=== PATIENT | female | born 1965 | race Caucasian/White ===

== ENCOUNTER 2017-04-22 18:41 | Emergency (ER) | payer OTHER ==
[~2017-04-22] VITALS: Ht 157.5 cm; Wt 72.7 kg
[2017-04-22 19:01] VITALS: BP 195/121
--- NOTE | 2017-04-22 20:42 | NUR ---
Patient ambulated to bed 07.
--- NOTE | 2017-04-22 20:50 | NUR ---
PATIENT PRESENTS TO ED WITH c/o went for htn refill --- was noted hypertensive systolic >200---was walkd over to ER denies dizziness, denies young, no n/v-- hx---htn, hypothyroid, ms, rx---losartan, levothyroxine, baclofen; DENIES N/V/D; SKIN IS PINK/WARM/DRY; AAOX4 WITH EVEN AND STEADY GAIT; LUNGS CLEAR BL; HR EVEN AND REGULAR; PT DENIES ANY FEVER, CP, SOB, OR COUGH AT THIS TIME; PATIENT STATES PAIN OF 0/10 AT THIS TIME; VSS; PATIENT POSITIONED FOR COMFORT; HOB ELEVATED; BEDRAILS UP X2; BED DOWN. ER MD MADE AWARE OF PT STATUS.
--- NOTE | 2017-04-22 21:00 | NUR ---
AAO pt being evaluated by Dr Shields
[2017-04-22] MEDS ORDERED: cloNIDine 0.1 MG TAB PO ONE (21:05)
[2017-04-22 21:42] VITALS: BP 179/113
--- NOTE | 2017-04-22 21:42 | NUR ---
Patient discharged with v/s stable. Written and verbal after care instructions given and explained. Patient verbalized understanding. Ambulatory with steady gait. All questions addressed prior to discharge. Advised to follow up with PMD.
== END 2017-04-22 21:42 | disposition home or self-care (01) ==
LOC: EEVIPCON 18:41 → MED 18:41
DX: I10 Essential (primary) hypertension (principal); E03.9 Hypothyroidism, unspecified; G35 Multiple sclerosis
CPT/HCPCS: 99283